=== PATIENT | female | born 1985 | race American Indian/Alaskan Native ===

== ENCOUNTER 2021-11-21 08:46 | Emergency (ER) | payer SELFPAY ==
[2021-11-21 08:55] VITALS: BP 109/75
== END 2021-11-21 14:36 | disposition left against medical advice (07) ==
LOC: ED 08:46
DX: R11.10 Vomiting, unspecified (principal); R19.7 Diarrhea, unspecified; R05.9 Cough, unspecified; Z53.21 Procedure and treatment not carried out due to patient leaving prior to being seen by health care provider